=== PATIENT | male | born 1995 | race Caucasian/White ===

== ENCOUNTER 2018-02-01 23:47 | Emergency (ER) | payer SELFPAY ==
[~2018-02-01] VITALS: Ht 177.8 cm; Wt 63.5 kg
[2018-02-02 00:05] VITALS: BP 115/69
== END 2018-02-02 02:00 | disposition left against medical advice (07) ==
LOC: ER 23:52
DX: R20.0 Anesthesia of skin (principal); Z53.21 Procedure and treatment not carried out due to patient leaving prior to being seen by health care provider

== ENCOUNTER 2018-02-09 16:58 | Emergency (ER) | payer SELFPAY ==
[~2018-02-09] VITALS: Ht 177.8 cm; Wt 65.8 kg
[2018-02-09 17:59] LABS: Basophils # (auto) 0 uL; Eosinophils # (auto) 0 uL; Lymphocytes # (auto) 0.7 uL; Monocytes # (auto) 0.4 uL
[2018-02-09 18:01] LABS: Basophils % (auto) 0.4 % (0.0-2.0); Eosinophils % (auto) 0.5 % (0.0-7.0); Hematocrit 52.6 % (41.0-53.0); Hemoglobin 18.4 g/dL (13.5-17.5); Mean Corpuscular Volume 88.7 fL (80.0-100.0); Monocytes % (auto) 4.6 % (0.0-12.0); Neutrophils # (auto) 7.3 uL; Neutrophils % (auto) 86.5 % (37.0-80.0); Nucleated Red Blood Cells % 0.1 %; Platelet Count (auto) 182 10^3/uL (140-450); Red Blood Cells 5.93 10^6/uL (4.5-5.90); Red Cell Distribution Width 12.9 % (11.8-14.3); White Blood Cell 8.5 10^3/uL (4.4-10.8)
[2018-02-09 18:12] LABS: Alanine Aminotransferase 14 U/L (16-61); Alkaline Phosphatase 67 U/L (45-117); Anion Gap 13 (5-15); Aspartate Aminotransferase 8 U/L (15-37); BUN/Creatinine Ratio 13.5; Bilirubin, Total 1.4 mg/dL (0.2-1.0); Blood Urea Nitrogen 14 mg/dL (7-18); Calcium 9.4 mg/dL (8.5-10.1); Carbon Dioxide 23 mmol/L (21-32); Chloride 104 mmol/L (98-107); GFR African American 117 mL/min; GFR Non-African American 97 mL/min; Glucose 107 mg/dL (74-106); Potassium 3.8 mmol/L (3.5-5.1); Sodium 140 mmol/L (136-145); Total Protein 8.3 g/dL (6.4-8.2)
[2018-02-09] MEDS ORDERED: LORazepam 2MG/ML-1ML VIAL IM ONE (19:30)
[2018-02-09 20:01] LABS: Acetaminophen < 2.0 ug/mL (10-30); Salicylate < 1.7 mg/dL (2.8-20.0)
[2018-02-09 20:29] LABS: Alcohol, Urine < 3.0 mg/dL (0-5); Amphetamine Screen, Urine NEGATIVE (NEGATIVE); Barbiturate Scree,Urine NEGATIVE (NEGATIVE); Benzodiazephine Screen, Urine NEGATIVE (NEGATIVE); Cannabinoid Screen, Urine POSITIVE (NEGATIVE); Cocaine Screen, Urine NEGATIVE (NEGATIVE); Opiate Scree,Urine NEGATIVE (NEGATIVE); Phencyclidine Screen, Urine NEGATIVE (NEGATIVE)
[2018-02-09 20:30] VITALS: BP 134/99
== END 2018-02-09 21:13 | disposition home or self-care (01) ==
LOC: EDBD 16:58 → ER 17:01
DX: F41.9 Anxiety disorder, unspecified (principal); F12.10 Cannabis abuse, uncomplicated
CPT/HCPCS: 36415; 71046; 80053; 80307; 80320; 80329; 84484; 85025; 93005; 96372; 99285; J2060